=== PATIENT | male | born 1965 | race Caucasian/White ===

== ENCOUNTER 2017-02-18 21:23 | Emergency (ER) | payer MEDICAID ==
[~2017-02-18] VITALS: Ht 5619.3 cm; Wt 74.9 kg
[~2017-02-18 21:23] MED LIST: CHLO25CA10 PO
[2017-02-18 22:28] LABS: BASOPHILS % (AUTO) 0.5 % (0-1); EOSINOPHILS % (AUTO) 0.2 % (0-6); HEMOGLOBIN 13.8 g/dl (14.0-17.9); LYMPHOCYTES # (AUTO) 1.3 X10'3 (1.1-4.8); MEAN CORPUSCULAR HEMOGLOBIN 31.4 PG (27.0-31.0); MEAN CORPUSCULAR HGB CONC 34.5 % (33.0-36.5); MEAN CORPUSCULAR VOLUME 91.1 FL (78-98); MEAN PLATELET VOLUME 7.7 FL (7.4-10.4); MONOCYTES # (AUTO) 0.9 X10'3 (0-0.9); MONOCYTES % (AUTO) 10.6 % (2-12); NEUTROPHILS # (AUTO) 6.3 X10'3 (1.8-7.7); NEUTROPHILS % (AUTO) 73.7 % (42-75); PLATELET COUNT 310 X10'3 (140-440); RED BLOOD COUNT 4.39 X10'6 (4.70-6.10); RED CELL DISTRIBUTION WIDTH 13.4 % (11.5-14.5); WHITE BLOOD COUNT 8.6 X10'3 (4.5-11.0)
[2017-02-18] MEDS ORDERED: thiamine 100mg tablet PO ONE (22:30)
[2017-02-18] MEDS ORDERED: phenobarbital inj 130 MG in normal saline 100ml IV soln 99 ML IV PRN (22:30)
[2017-02-18] MEDS ORDERED: magnesium oxide 400mg tablet PO ONE (22:30)
[2017-02-18] MEDS ORDERED: normal saline 1000ML IV soln IVB ONE (22:30)
[2017-02-18] MEDS ORDERED: ondansetron/PF 4mg/2ml inj IV ONE (22:30)
[2017-02-18 22:44] LABS: ALANINE AMINOTRANSFERASE 49 U/L (12-78); ALBUMIN 3.5 G/DL (3.4-5.0); ALBUMIN/GLOBULIN RATIO 0.9 (1.1-1.5); ALKALINE PHOSPHATASE 129 IU/L (46-116); ANION GAP 8 (8-16); ASPARTATE AMINO TRANSFERASE 41 U/L (10-37); BILIRUBIN,TOTAL 0.3 MG/DL (0.1-1.0); BLOOD UREA NITROGEN 14 MG/DL (7-18); BUN/CREATININE RATIO 11.3 (5.4-32.0); CALCIUM 8.9 MG/DL (8.5-10.1); CHLORIDE 103 MMOL/L (99-107); CREATININE 1.24 MG/DL (0.60-1.10); GLUCOSE 104 MG/DL (70-104); SODIUM 139 MMOL/L (135-145); TOTAL CARBON DIOXIDE 28.3 MMOL/L (24-32); TOTAL PROTEIN 7.3 G/DL (6.4-8.2); eGFR 62 ML/MIN
[2017-02-18 22:47] LABS: CLARITY,URINE Clear (Clear); COLOR,URINE Yellow (Yellow); GLUCOSE, URINE Negative (Neg); KETONES,URINE Negative (Neg); LEUKOCYTE ESTERASE ,URINE Negative (Neg); NITRITES, URINE Negative (Neg); OCCULT BLOOD,URINE Negative (Neg); PROTEIN,URINE Trace mg/dl (Neg)
[2017-02-18 22:49] LABS: URINE AMPHETAMINE SCREEN NEGATIVE (Neg); URINE BARBITUATE SCREEN NEGATIVE (Neg); URINE BENZODIAZEPINES SCREEN POSITIVE (Neg); URINE CANNABINOID SCREEN POSITIVE (Neg); URINE COCAINE SCREEN NEGATIVE (Neg); URINE METHADONE SCREEN NEGATIVE (Neg); URINE OPIATE SCREEN NEGATIVE (Neg); URINE PHENCYCLIDINE SCREEN NEGATIVE (Neg)
[2017-02-18 22:56] LABS: ETHANOL < 0.010 GM/DL (0.0-0.010); MAGNESIUM 1.8 MG/DL (1.5-2.4)
[2017-02-18 23:02] LABS: UA COLLECTION TYPE CLN CATCH MIDSTREAM
[2017-02-18 23:05] LABS: BACTERIA,URINE NONE SEEN /HPF (Neg); RBC,URINE NONE SEEN /HPF (0-2); SQUAMOUS EPITHELIAL CELL,UR NONE SEEN /LPF (FEW); WBC,URINE NONE SEEN /HPF (0-4)
[2017-02-18 23:46] LABS: TOTAL CELLS COUNTED 100
[2017-02-18 23:47] LABS: PLATELET ESTIMATE NORMAL
[2017-02-19] MEDS ORDERED: risperiDONE 0.5mg tablet PO ONE (07:50)
[2017-02-19] MEDS ORDERED: folic acid 1mg tablet PO ONE (08:00)
[2017-02-19] MEDS ORDERED: chlordiazePOXIDE 25mg capsule PO ONE (08:00)
[2017-02-19] MEDS: thiamine 100mg tablet PO SCH (08:13)
[2017-02-19] MEDS: folic acid 1mg tablet PO SCH (08:14)
[2017-02-19] MEDS: LORazepam 1 MG tablet PO PRN ×2 (13:09→19:30)
[2017-02-19] MEDS: risperiDONE 0.5mg tablet PO SCH (21:07)
[2017-02-20] MEDS: diphenhydrAMINE 25mg capsule PO PRN ×3 (01:51→13:37)
[2017-02-20] MEDS: LORazepam 1 MG tablet PO PRN ×4 (01:51→22:58)
[2017-02-20] MEDS: haloperidol 5mg tablet PO PRN ×3 (01:51→13:37)
[2017-02-20] MEDS: thiamine 100mg tablet PO SCH (08:13)
[2017-02-20] MEDS: folic acid 1mg tablet PO SCH (08:13)
[2017-02-20] MEDS ORDERED: ibuprofen tablet 400 MG TABLET PO ONE (13:25)
[2017-02-20] MEDS: nicotine 21mg patch - 24 hr TD SCH (13:38)
[2017-02-20 20:42] LABS: BASOPHILS % (AUTO) 0.5 % (0-1); EOSINOPHILS # (AUTO) 0.1 X10'3 (0-0.9); EOSINOPHILS % (AUTO) 2.9 % (0-6); HEMOGLOBIN 14.3 g/dl (14.0-17.9); LYMPHOCYTES % (AUTO) 26.6 % (21-51); MEAN CORPUSCULAR HEMOGLOBIN 31.4 PG (27.0-31.0); MEAN CORPUSCULAR HGB CONC 34.1 % (33.0-36.5); MEAN CORPUSCULAR VOLUME 92.2 FL (78-98); MEAN PLATELET VOLUME 7.8 FL (7.4-10.4); MONOCYTES # (AUTO) 0.7 X10'3 (0-0.9); MONOCYTES % (AUTO) 17.5 % (2-12); NEUTROPHILS % (AUTO) 52.5 % (42-75); PLATELET COUNT 242 X10'3 (140-440); RED BLOOD COUNT 4.55 X10'6 (4.70-6.10); WHITE BLOOD COUNT 3.8 X10'3 (4.5-11.0)
[2017-02-20 20:55] LABS: ALANINE AMINOTRANSFERASE 34 U/L (12-78); ALBUMIN 3.1 G/DL (3.4-5.0); ALBUMIN/GLOBULIN RATIO 0.8 (1.1-1.5); ALKALINE PHOSPHATASE 139 IU/L (46-116); ANION GAP 7 (8-16); ASPARTATE AMINO TRANSFERASE 23 U/L (10-37); BILIRUBIN,TOTAL 0.2 MG/DL (0.1-1.0); BLOOD UREA NITROGEN 17 MG/DL (7-18); BUN/CREATININE RATIO 21.3 (5.4-32.0); CALCIUM 9.1 MG/DL (8.5-10.1); CHLORIDE 102 MMOL/L (99-107); GLUCOSE 108 MG/DL (70-104); POTASSIUM 3.7 MMOL/L (3.5-5.1); SODIUM 140 MMOL/L (135-145); TOTAL PROTEIN 6.8 G/DL (6.4-8.2); eGFR > 90 ML/MIN
[2017-02-20] MEDS: risperiDONE 0.5mg tablet PO SCH (21:00)
[2017-02-20 23:38] LABS: PLATELET ESTIMATE NORMAL; TOTAL CELLS COUNTED 100
[2017-02-21] MEDS: diphenhydrAMINE 25mg capsule PO PRN ×4 (02:11→21:02)
[2017-02-21] MEDS: LORazepam 1 MG tablet PO PRN ×4 (02:11→21:02)
[2017-02-21] MEDS: haloperidol 5mg tablet PO PRN ×4 (02:12→21:01)
[2017-02-21] MEDS: nicotine 21mg patch - 24 hr TD SCH ×2 (08:00→15:00)
[2017-02-21] MEDS: thiamine 100mg tablet PO SCH (08:13)
[2017-02-21] MEDS: folic acid 1mg tablet PO SCH (08:14)
[2017-02-21] MEDS: ibuprofen 200mg tablet PO ONE ×2 (11:44→12:10)
[2017-02-21] MEDS ORDERED: bacitracin 15gm ointment TP ONE ×2 (12:00)
[2017-02-21] MEDS: risperiDONE 0.5mg tablet PO SCH (20:51)
[2017-02-21] MEDS ORDERED: ibuprofen tablet 400 MG TABLET PO ONE (21:50)
[2017-02-21] MEDS ORDERED: ibuprofen 200mg tablet PO ONE (21:55)
[2017-02-22] MEDS: LORazepam 1 MG tablet PO PRN ×3 (06:17→19:47)
[2017-02-22] MEDS: diphenhydrAMINE 25mg capsule PO PRN ×3 (06:18→19:47)
[2017-02-22] MEDS: haloperidol 5mg tablet PO PRN ×3 (06:18→19:48)
[2017-02-22] MEDS: thiamine 100mg tablet PO SCH (08:08)
[2017-02-22] MEDS: folic acid 1mg tablet PO SCH (08:08)
[2017-02-22] MEDS: nicotine 21mg patch - 24 hr TD SCH (08:10)
[2017-02-22] MEDS: ibuprofen 200mg tablet PO PRN (19:49)
[2017-02-22] MEDS: risperiDONE 0.5mg tablet PO SCH (19:52)
[2017-02-23] MEDS: LORazepam 1 MG tablet PO PRN ×4 (02:15→20:33)
[2017-02-23] MEDS: diphenhydrAMINE 25mg capsule PO PRN ×4 (02:15→20:32)
[2017-02-23] MEDS: haloperidol 5mg tablet PO PRN ×4 (02:16→20:33)
[2017-02-23] MEDS: thiamine 100mg tablet PO SCH (08:19)
[2017-02-23] MEDS: folic acid 1mg tablet PO SCH (08:19)
[2017-02-23] MEDS: nicotine 21mg patch - 24 hr TD SCH (08:20)
[2017-02-23] MEDS: ibuprofen 200mg tablet PO PRN ×2 (08:25→14:31)
[2017-02-23] MEDS: risperiDONE 0.5mg tablet PO SCH (20:32)
[2017-02-24] MEDS: haloperidol 5mg tablet PO PRN ×3 (02:48→16:23)
[2017-02-24] MEDS: diphenhydrAMINE 25mg capsule PO PRN ×3 (02:48→16:23)
[2017-02-24] MEDS: LORazepam 1 MG tablet PO PRN ×3 (02:49→16:23)
[2017-02-24] MEDS: ibuprofen 200mg tablet PO PRN ×2 (02:49→16:30)
[2017-02-24] MEDS: thiamine 100mg tablet PO SCH (08:06)
[2017-02-24] MEDS: nicotine 21mg patch - 24 hr TD SCH (08:06)
[2017-02-24] MEDS: folic acid 1mg tablet PO SCH (08:06)
[2017-02-24] MEDS: risperiDONE 0.5mg tablet PO SCH (20:49)
[2017-02-25] MEDS: ibuprofen 200mg tablet PO PRN (00:46)
[2017-02-25] MEDS: LORazepam 1 MG tablet PO PRN (00:46)
[2017-02-25] MEDS: diphenhydrAMINE 25mg capsule PO PRN ×3 (00:48→21:14)
[2017-02-25] MEDS: haloperidol 5mg tablet PO PRN ×2 (00:49→07:49)
[2017-02-25] MEDS: folic acid 1mg tablet PO SCH (07:43)
[2017-02-25] MEDS: thiamine 100mg tablet PO SCH (07:43)
[2017-02-25] MEDS: nicotine 21mg patch - 24 hr TD SCH (07:44)
[2017-02-25] MEDS: hydrOXYzine 25 MG tablet PO PRN ×2 (07:50→20:27)
[2017-02-25] MEDS: neomy sulf/bacitrac zn/polymixin b oint 14.2 gm tube TP SCH ×3 (13:00→20:28)
[2017-02-25] MEDS: risperiDONE 0.5mg tablet PO SCH (20:25)
[2017-02-26] MEDS: nicotine 21mg patch - 24 hr TD SCH (08:38)
[2017-02-26] MEDS: thiamine 100mg tablet PO SCH (08:38)
[2017-02-26] MEDS: neomy sulf/bacitrac zn/polymixin b oint 14.2 gm tube TP SCH ×3 (08:38→21:00)
[2017-02-26] MEDS: folic acid 1mg tablet PO SCH (08:38)
[2017-02-26] MEDS: hydrOXYzine 25 MG tablet PO PRN (08:44)
[2017-02-26] MEDS: diphenhydrAMINE 25mg capsule PO PRN (08:44)
[2017-02-26] MEDS: ibuprofen 200mg tablet PO PRN ×2 (11:04→20:46)
[2017-02-26] MEDS: risperiDONE 0.5mg tablet PO SCH (21:00)
[2017-02-27] MEDS: diphenhydrAMINE 25mg capsule PO PRN (03:38)
[2017-02-27] MEDS: ibuprofen 200mg tablet PO PRN (03:38)
[2017-02-27 05:17] VITALS: BP 124/73
== END 2017-02-27 09:08 | disposition home or self-care (01) ==
LOC: ER 21:23
DX: F33.9 Major depressive disorder, recurrent, unspecified (principal); F10.239 Alcohol dependence with withdrawal, unspecified; I10 Essential (primary) hypertension; F12.10 Cannabis abuse, uncomplicated; F13.10 Sedative, hypnotic or anxiolytic abuse, uncomplicated; R45.851 Suicidal ideations
CPT/HCPCS: 36415; 71010; 80053; 80305; 80320; 81001; 83735; 84443; 85025; 93005; 96365; 99285; J2405; J2560; J7030; Q0163; Q0177; 96375

== ENCOUNTER 2017-07-11 19:05 | Emergency (ER) | payer MEDICAID ==
[~2017-07-11] VITALS: Ht 175.3 cm; Wt 65.4 kg
[2017-07-11] MEDS ORDERED: GABA600T2 PO (22:06)
[2017-07-11 22:51] LABS: BASOPHILS % (AUTO) 0.5 % (0-1); EOSINOPHILS # (AUTO) 0.2 X10'3 (0-0.9); EOSINOPHILS % (AUTO) 2.8 % (0-6); HEMATOCRIT 42.6 % (42.0-52.0); LYMPHOCYTES # (AUTO) 2.1 X10'3 (1.1-4.8); LYMPHOCYTES % (AUTO) 28.3 % (21-51); MEAN CORPUSCULAR HEMOGLOBIN 31.1 PG (27.0-31.0); MEAN CORPUSCULAR HGB CONC 35.2 % (33.0-36.5); MEAN CORPUSCULAR VOLUME 88.5 FL (78-98); MEAN PLATELET VOLUME 8.3 FL (7.4-10.4); MONOCYTES # (AUTO) 0.9 X10'3 (0-0.9); NEUTROPHILS # (AUTO) 4.1 X10'3 (1.8-7.7); NEUTROPHILS % (AUTO) 56.4 % (42-75); PLATELET COUNT 237 X10'3 (140-440); RED BLOOD COUNT 4.81 X10'6 (4.70-6.10); RED CELL DISTRIBUTION WIDTH 12.6 % (11.5-14.5); WHITE BLOOD COUNT 7.3 X10'3 (4.5-11.0)
[2017-07-11 22:58] LABS: PARTIAL THROMBOPLASTIN TIME 25 SECONDS (22-32); PROTHROMBIN TIME 10.1 SECONDS (9.0-12.0)
[2017-07-11] MEDS ORDERED: cyclobenzaprine 10mg tablet PO ONE (23:05)
[2017-07-11] MEDS ORDERED: chlordiazePOXIDE 25mg capsule PO ONE (23:05)
[2017-07-11 23:11] LABS: ALANINE AMINOTRANSFERASE 42 U/L (12-78); ALBUMIN 4.1 G/DL (3.4-5.0); ALBUMIN/GLOBULIN RATIO 1.3 (1.1-1.5); ALKALINE PHOSPHATASE 85 IU/L (46-116); ANION GAP 13 (8-16); ASPARTATE AMINO TRANSFERASE 39 U/L (10-37); BILIRUBIN,TOTAL 0.4 MG/DL (0.1-1.0); BLOOD UREA NITROGEN 13 MG/DL (7-18); BUN/CREATININE RATIO 16.5 (5.4-32.0); CALCIUM 8.8 MG/DL (8.5-10.1); CHLORIDE 104 MMOL/L (99-107); CREATININE 0.79 MG/DL (0.60-1.10); GLUCOSE 100 MG/DL (70-104); MAGNESIUM 2.1 MG/DL (1.5-2.4); POTASSIUM 4.3 MMOL/L (3.5-5.1); SODIUM 141 MMOL/L (135-145); TOTAL CARBON DIOXIDE 23.9 MMOL/L (24-32); TOTAL PROTEIN 7.2 G/DL (6.4-8.2); eGFR > 90 ML/MIN
[2017-07-11 23:56] VITALS: BP 137/60
[2017-07-12] MEDS ORDERED: gabapentin 300mg capsule PO SCH
== END 2017-07-11 23:59 | disposition home or self-care (01) ==
LOC: ER 19:05
DX: M62.81 Muscle weakness (generalized) (principal); R79.1 Abnormal coagulation profile; Z56.0 Unemployment, unspecified; Z79.899 Other long term (current) drug therapy
CPT/HCPCS: 36415; 80053; 83735; 84100; 84443; 85025; 85610; 85730; 93005; 99285

== ENCOUNTER 2021-10-09 12:17 | Emergency (ER) | payer MEDICAID ==
[~2021-10-09] VITALS: Ht 175.3 cm; Wt 70.5 kg
[~2021-10-09 12:17] MED LIST changes: +GABA600T13 PO
[2021-10-09 13:14] LABS: BASOPHILS % (AUTO) 0.5 % (0-1); EOSINOPHILS % (AUTO) 0.6 % (0-6); HEMATOCRIT 43.8 % (42.0-52.0); HEMOGLOBIN 15.1 g/dl (14.0-17.9); LYMPHOCYTES # (AUTO) 1.6 X10'3 (1.1-4.8); LYMPHOCYTES % (AUTO) 21.3 % (21-51); MEAN CORPUSCULAR HEMOGLOBIN 31.4 PG (27.0-31.0); MEAN CORPUSCULAR HGB CONC 34.6 g/dL (33.0-36.5); MEAN CORPUSCULAR VOLUME 90.9 FL (78-98); MEAN PLATELET VOLUME 7.7 FL (7.4-10.4); MONOCYTES # (AUTO) 1.1 X10'3 (0-0.9); MONOCYTES % (AUTO) 14.6 % (2-12); NEUTROPHILS # (AUTO) 4.6 X10'3 (1.8-7.7); PLATELET COUNT 298 X10'3 (140-440); RED BLOOD COUNT 4.82 X10'6 (4.70-6.10); RED CELL DISTRIBUTION WIDTH 14.7 % (11.5-14.5); WHITE BLOOD COUNT 7.3 X10'3 (4.5-11.0)
[2021-10-09] MEDS ORDERED: ARIP20TA4 PO (13:22)
[2021-10-09] MEDS ORDERED: BACL20TA11 (13:25)
[2021-10-09] MEDS ORDERED: CYCL-1 PO (13:25)
[2021-10-09] MEDS ORDERED: LORA2TAB96 PO (13:26)
[2021-10-09] MEDS ORDERED: PALI234D IM (13:28)
[2021-10-09 13:31] LABS: ALANINE AMINOTRANSFERASE 36 U/L (12-78); ALBUMIN 4.3 G/DL (3.4-5.0); ALBUMIN/GLOBULIN RATIO 1.1 (1.1-1.5); ALKALINE PHOSPHATASE 168 IU/L (46-116); ANION GAP 14 (8-16); ASPARTATE AMINO TRANSFERASE 41 U/L (10-37); BILIRUBIN,TOTAL 0.7 MG/DL (0.1-1.0); BLOOD UREA NITROGEN 10 MG/DL (7-18); BUN/CREATININE RATIO 11.5 (5.4-32.0); CALCIUM 8.9 MG/DL (8.5-10.1); CHLORIDE 103 MMOL/L (99-107); CREATININE 0.87 MG/DL (0.60-1.10); GLUCOSE 90 MG/DL (70-104); POTASSIUM 3.3 MMOL/L (3.5-5.1); SODIUM 140 MMOL/L (135-145); TOTAL CARBON DIOXIDE 23.2 MMOL/L (24-32); TOTAL PROTEIN 8.2 G/DL (6.4-8.2); eGFR > 90 ML/MIN
[2021-10-09 13:38] LABS: ETHANOL 0.143 GM/DL (0.0-0.010)
[2021-10-09] MEDS ORDERED: potassium Cl 20 mEq SR tablet PO STA (13:53)
[2021-10-09] MEDS ORDERED: folic acid 1mg/0.2ml inj IV ONE (13:55)
[2021-10-09] MEDS ORDERED: ondansetron/PF 4mg/2ml inj IV ONE (13:55)
[2021-10-09] MEDS ORDERED: thiamine 100mg/ml 2ml inj. IV ONE (13:55)
[2021-10-09] MEDS ORDERED: famotidine/PF 10 mg/ml inj IV ONE (13:55)
[2021-10-09] MEDS ORDERED: normal saline 1000ML IV soln IVB ONE (13:55)
[2021-10-09] MEDS ORDERED: LORazepam 2 mg/ml vial IV ONE (13:55)
--- NOTE | 2021-10-09 15:00 | NUR ---
pt became slightly aggressive towards staff when he was told he was going to get 1mg of ativan. pt demanded 2 mg "saying 1 mg is not going to do fucking anything. if you are going to fuck around i am just going to leave". staff came to stand by. pt calmed down.
--- NOTE | 2021-10-09 15:30 | NUR ---
pt is sound asleep. will admin oral k+ when the pt wakes up as he was becoming very aggressive towards staff.
--- NOTE | 2021-10-09 17:00 | NUR ---
pt is sleeping
[2021-10-09] MEDS ORDERED: chlordiazePOXIDE 25mg capsule PO ONE (18:43)
[2021-10-09] MEDS: cyclobenzaprine 10mg tablet PO PRN (19:03)
[2021-10-09] MEDS: ARIPIPRAZOLE 10 MG TABLET PO SCH (19:04)
[2021-10-09 19:15] LABS: CLARITY,URINE CLEAR (Clear); COLOR,URINE YELLOW (Yellow); GLUCOSE, URINE NEGATIVE (Neg); KETONES,URINE TRACE mg/dl (Neg); LEUKOCYTE ESTERASE ,URINE NEGATIVE (Neg); NITRITES, URINE NEGATIVE (Neg); OCCULT BLOOD,URINE NEGATIVE (Neg); PROTEIN,URINE NEGATIVE (Neg); UROBILINOGEN,URINE 0.2 E.U/dL (0.2-1.0)
[2021-10-09 19:18] LABS: URINE AMPHETAMINE SCREEN NEGATIVE (Neg); URINE BARBITUATE SCREEN NEGATIVE (Neg); URINE BENZODIAZEPINES SCREEN POSITIVE (Neg); URINE CANNABINOID SCREEN POSITIVE (Neg); URINE COCAINE SCREEN NEGATIVE (Neg); URINE METHADONE SCREEN NEGATIVE (Neg); URINE OPIATE SCREEN NEGATIVE (Neg); URINE PHENCYCLIDINE SCREEN NEGATIVE (Neg)
[2021-10-09 19:26] LABS: UA COLLECTION TYPE VOIDED
--- NOTE | 2021-10-09 19:48 | NUR ---
The patient is tremulous and BP 152/127 and HR 100. 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 He was very irritable. He stated that he is feeling suicidal and stated he wished the Fentanyl that he had taken had worked to end his life. Medications given as ordered and he is currently resting on his bed.
--- NOTE | 2021-10-09 22:00 | NUR ---
The patient appears to be sleeping
--- NOTE | 2021-10-09 23:59 | NUR ---
The patient appears to be sleeping
[2021-10-10] MEDS ORDERED: cyclobenzaprine 10mg tablet PO SCH
--- NOTE | 2021-10-10 01:13 | NUR ---
The patient appears to be sleeping
--- NOTE | 2021-10-10 02:21 | NUR ---
The patient was awake and requested juice
--- NOTE | 2021-10-10 03:58 | NUR ---
The patient appears to be sleeping
--- NOTE | 2021-10-10 04:51 | NUR ---
The patient appears to be sleeping
--- NOTE | 2021-10-10 05:20 | NUR ---
PACKET SENT TO [facility]
--- NOTE | 2021-10-10 07:00 | NUR ---
pt is sleeping
[2021-10-10] MEDS: ARIPIPRAZOLE 10 MG TABLET PO SCH ×2 (08:55→20:11)
--- NOTE | 2021-10-10 09:00 | NUR ---
no signs of etoh withdrawal. pt is taking his meds
[2021-10-10] MEDS: cyclobenzaprine 10mg tablet PO PRN ×2 (09:01→20:13)
[2021-10-10] MEDS: LORazepam 1 MG tablet PO PRN ×2 (09:01→12:24)
[2021-10-10] MEDS: chlordiazePOXIDE 25mg capsule PO SCH ×3 (09:01→20:12)
--- NOTE | 2021-10-10 11:00 | NUR ---
pt is sleeping
--- NOTE | 2021-10-10 13:00 | NUR ---
pt is sleeping
--- NOTE | 2021-10-10 15:00 | NUR ---
pt is resting in his bed. no issues
--- NOTE | 2021-10-10 15:10 | NUR ---
PT ALERTED STAFF THAT HIS IV WAS BLEEDING. IT WAS PULLED OUT, REMOVED AND CLEANED PT UP.
--- NOTE | 2021-10-10 17:00 | NUR ---
pt is resting.
--- NOTE | 2021-10-10 18:19 | NUR ---
The patient became enraged that he was not given a double meal tray and began approaching the nursing station pumped and in a threatening manner. He was immediately told that the behavior was totally unacceptable and was directed back to his bed which he did.
--- NOTE | 2021-10-10 19:53 | NUR ---
The patient appears to be sleeping
--- NOTE | 2021-10-10 20:15 | NUR ---
The patient awakened for medications and he was polite.
--- NOTE | 2021-10-10 21:52 | NUR ---
The patient appears to be sleeping
--- NOTE | 2021-10-10 23:57 | NUR ---
The patient appears to be sleeping
--- NOTE | 2021-10-11 01:38 | NUR ---
The patient appears to be sleeping
[2021-10-11] MEDS: LORazepam 1 MG tablet PO PRN ×3 (02:13→16:08)
--- NOTE | 2021-10-11 02:14 | NUR ---
The patient up to the station and irritable and agitated. Ativan 2mg given
--- NOTE | 2021-10-11 03:00 | NUR ---
The patient appears to be sleeping
--- NOTE | 2021-10-11 04:50 | NUR ---
The patient is currently is resting on his bed but has been restless and irritable despite getting two mg of ativan
--- NOTE | 2021-10-11 08:00 | NUR ---
Pt. awake and eating breakfast at bedside. Pt. took all medications including Librium 100mg for ETOH withdrawal. Pt. requesting Ativan and informed he must wait 2 more hours. Pt. states, "They didn't make me wait last time". Pt. requesting more food. Pt. informed that if there is more
[2021-10-11] MEDS: ARIPIPRAZOLE 10 MG TABLET PO SCH ×2 (08:12→20:21)
[2021-10-11] MEDS: chlordiazePOXIDE 25mg capsule PO SCH ×3 (08:13→20:21)
--- NOTE | 2021-10-11 08:57 | NUR ---
Pt. requesting more food, RN informed pt. that if there are snacks he may have one. Pt. states, "I want another breakfast try". Pt. informed that there are no more breakfast trays. Pt. begins to swear and calls this RN "Dumber than a box of rocks". 1:1 assessment done at bedside, Pt. endorses SI with plan, states, "I'm not telling you my plan". Pt. denies HI, A/V hallucinations. Pt. A&O to self and circumstance only. Pt. states, "I was sober and living in [address] housing but I relapsed and lost my housing. The last week I've just been drinking".
--- NOTE | 2021-10-11 11:00 | NUR ---
Pt. awake and laying in bed in supine position. Pt. in no apparent distress.
--- NOTE | 2021-10-11 12:00 | NUR ---
Pt. became agitated, demanding food. Pt. given Ativan 2mg.
--- NOTE | 2021-10-11 14:15 | NUR ---
Pt. eloped and was found wandering outside of the hospital. When found, pt. states, "I just wanted to take a little walk around the block". Pt. agreed to come back into the hospital.
--- NOTE | 2021-10-11 16:00 | NUR ---
Pt. becoming agitated, states, "I want my stuff and I want to go outside and have a cigarette". When pt. informed that he is on a hold, pt. states, "Well I don't want that!" Pt. states, "I just want my backpack and an aspirin". Pt. given PRN Ativan 2mg and Flexaril 10mg po and pt. went back to his bed.
[2021-10-11] MEDS: cyclobenzaprine 10mg tablet PO PRN (16:08)
[2021-10-11] MEDS ORDERED: haloperidol 5mg tablet PO ONE (16:25)
[2021-10-11] MEDS ORDERED: diphenhydrAMINE 25mg capsule PO ONE (16:25)
--- NOTE | 2021-10-11 17:00 | NUR ---
Pt. becoming agitated again, stating, "I'm gonna get out of here and that's that, you guys are all idiots! I can't stay here anymore". RN received one time order for Haldol 10mg and Benadryl 50mg. Pt. took medication without issue.
--- NOTE | 2021-10-11 17:17 | NUR ---
Pt refused 0 vital signs "no, no, no, there's no point, I am sick of your incompetancy and idocracy", this tech insisted that it was important to have his vital signs checked and still pt refused, stating "if I I , I don't really give a shit."
--- NOTE | 2021-10-11 18:21 | NUR ---
Patient's room uncluttered and is in line of sight.
--- NOTE | 2021-10-11 19:00 | NUR ---
Patient at the nurses station demanding that he either be admitted to a facility or be released right away. Staff attempting to reason with patient, however, patient is rude to staff.
--- NOTE | 2021-10-11 19:15 | NUR ---
Patient demanding to go outside for a smoke
--- NOTE | 2021-10-11 19:45 | NUR ---
Patient is up from bed again demanding that all his medications be administered to him at this time. Patient informed that prescribed medications will be administered as at when due.
[2021-10-11] MEDS ORDERED: QUEtiapine 25mg tablet PO ONE (20:05)
--- NOTE | 2021-10-11 22:36 | NUR ---
Patient, post pm meds administration, is continually getting up from bed to wander and sometimes use the bathroom but is re-directable.
--- NOTE | 2021-10-11 23:04 | NUR ---
Patient is up again from bed and is being re-directed by staff.
--- NOTE | 2021-10-12 00:59 | NUR ---
Patient is resting quietly in bed within staff lines of sight
--- NOTE | 2021-10-12 02:57 | NUR ---
Patient, awake but resting in bed, remains in a safe environment.
--- NOTE | 2021-10-12 04:53 | NUR ---
Patient, awake, continously asking for plan of care update
--- NOTE | 2021-10-12 06:42 | NUR ---
Patient awake at start of shift. He is already demanding to leave. When told it was up to the doctors, he became beligerent, making threats and name calling. He was directed back to his room.
--- NOTE | 2021-10-12 08:00 | NUR ---
Patient wandering around the unit looking for his things. Patient has to be told over and over that his things are locked up safely.
--- NOTE | 2021-10-12 10:07 | NUR ---
Patient up to use restroom, then directed back to his room.
[2021-10-12] MEDS: chlordiazePOXIDE 25mg capsule PO SCH ×3 (10:09→19:29)
[2021-10-12] MEDS: ARIPIPRAZOLE 10 MG TABLET PO SCH ×2 (10:09→19:30)
--- NOTE | 2021-10-12 12:52 | NUR ---
Patient sitting up on his bed finishing his lunch meal.
--- NOTE | 2021-10-12 14:00 | NUR ---
Patient has not slept today. He wanders around looking for his things, but they are locked up. Patient has been re-directed many times, but his short-term memory lasts around five minutes, before he's at it again.
[2021-10-12] MEDS: LORazepam 1 MG tablet PO PRN (19:29)
[2021-10-12] MEDS ORDERED: nicotine 21mg patch - 24 hr TD ONE (19:35)
--- NOTE | 2021-10-12 19:37 | NUR ---
The patient is agitated and confused. He thinks he is here because he wanted a toothbrush. Discussed the patient with Dr. Fregoso and it is suspected that the benzodiazapines are causing some delerium. He was made aware that the patient received librium and ativan.
--- NOTE | 2021-10-12 20:23 | NUR ---
The patient is wandering around by his bed
--- NOTE | 2021-10-12 21:33 | NUR ---
The patient is resting on his bed
--- NOTE | 2021-10-12 23:42 | NUR ---
The patient appears to be sleeping
--- NOTE | 2021-10-13 01:26 | NUR ---
The patient up to use the bathroom and is now back on his bed
[2021-10-13] MEDS ORDERED: acetaminophen 325mg tablet PO ONE (02:35)
--- NOTE | 2021-10-13 02:45 | NUR ---
The patient awake to use the bathroom. He is reporting back pain and asking for tylenol or ibuprofen and Dr. Florezfs aware and tylenol ordered. The patient is now back on his bed trying to sleep
--- NOTE | 2021-10-13 03:22 | NUR ---
The patient appears to be sleeping
[2021-10-13] MEDS: chlordiazePOXIDE 25mg capsule PO SCH ×3 (07:26→21:00)
[2021-10-13] MEDS: LORazepam 1 MG tablet PO PRN ×2 (07:26→17:10)
[2021-10-13] MEDS: ARIPIPRAZOLE 10 MG TABLET PO SCH ×2 (07:26→20:00)
--- NOTE | 2021-10-13 07:31 | NUR ---
Adina kelly in [facility] - 10/13/21 at 1104 by JULIANA Berta
--- NOTE | 2021-10-13 07:31 | NUR ---
Assumed care of this patient since 0630am, he is awake, alert and oriented. Currently pacing around the unit and delusional. Am meds given, also received Ativan for anxiety. Monitoring ongoing.
--- NOTE | 2021-10-13 07:34 | NUR ---
Previous to RN giving medications, while RN was getting medications to give to pt, dariel overheard pt talking to himself from his room. Dariel heard pt say "I wish I had my shotgun". Dariel did not approach pt but asked pt to repeat himself, pt refused to repeat himself and said "I didn't think you were listening to me".
--- NOTE | 2021-10-13 08:03 | NUR ---
Breakfast served, pt is eating at this time
--- NOTE | 2021-10-13 09:30 | NUR ---
Patient appears to be asleep at this time
--- NOTE | 2021-10-13 09:56 | NUR ---
Patient is awake, approached the nursing station. Talking gibberish, redirection implemented. Monitoring ongoing
--- NOTE | 2021-10-13 10:49 | NUR ---
Pt up and about, between nursing station and his bedside. Then sat on his bed and grawled out very loudly. Other patients were safely reassured. Monitoring ongoing
--- NOTE | 2021-10-13 11:02 | NUR ---
Patient loudly snoring at bedside
--- NOTE | 2021-10-13 11:02 | NUR ---
Adina kelly in [facility] - 10/13/21 at 1103 by JULIANA Pt elton
--- NOTE | 2021-10-13 11:20 | NUR ---
Patient is awake, up and about at this time
--- NOTE | 2021-10-13 11:27 | NUR ---
[facility] clinician evaluating patient at bedside. He is cursing, swearing and using foul language. security contacted and are standby
[2021-10-13] MEDS ORDERED: diphenhydrAMINE 50 mg/ml inj IM ONE (11:35)
[2021-10-13] MEDS ORDERED: LORazepam 2 mg/ml vial IM ONE (11:35)
[2021-10-13] MEDS ORDERED: haloperidol lactate 5mg/ml inj IM ONE (11:35)
--- NOTE | 2021-10-13 11:56 | NUR ---
Assisted by security team and staff, pt received ativan/haldol/benadryl as ordered. Currently in bed. Monitoring ongoing
--- NOTE | 2021-10-13 13:24 | NUR ---
Spoke to Annalisa ferraro @ [employer] for report on patient.
--- NOTE | 2021-10-13 13:34 | NUR ---
Patient alseep and snoring loudly
--- NOTE | 2021-10-13 14:25 | NUR ---
Patient is awake and eating lunch
[2021-10-13] MEDS: cyclobenzaprine 10mg tablet PO PRN (17:10)
--- NOTE | 2021-10-13 18:10 | NUR ---
Eating dinner at this time, received prns for anxiety and pain respectively. Vitals are stable. safety maintained. Report given to pm rn for resumption of care
[2021-10-13] MEDS ORDERED: acetaminophen 325mg tablet PO PRN (18:40)
[2021-10-13] MEDS: nicotine 21mg patch - 24 hr TD SCH (18:40)
--- NOTE | 2021-10-13 19:08 | NUR ---
The patient is resting on his bed. Was polite when served his dinner.
--- NOTE | 2021-10-13 22:55 | NUR ---
The patient appears to be sleeping
--- NOTE | 2021-10-14 01:10 | NUR ---
The patient appears to be sleeping
--- NOTE | 2021-10-14 02:25 | NUR ---
The patient appears to be sleeping
--- NOTE | 2021-10-14 03:59 | NUR ---
The patient appears to be sleeping
--- NOTE | 2021-10-14 05:54 | NUR ---
The patient appeared to have slept well during the night.
--- NOTE | 2021-10-14 06:56 | NUR ---
Recieved Pt in bed sleeping w/o distress at this time.
[2021-10-14] MEDS: nicotine 21mg patch - 24 hr TD SCH (08:28)
[2021-10-14] MEDS: ARIPIPRAZOLE 10 MG TABLET PO SCH ×2 (08:28→20:18)
[2021-10-14] MEDS: chlordiazePOXIDE 25mg capsule PO SCH ×3 (08:28→20:18)
--- NOTE | 2021-10-14 09:00 | NUR ---
Pt awake and took AM meds. Pt irritated that PRN meds are not given w/o asking. able to calm and ate breakfast. Pt smiling at times and able to joke a little.
[2021-10-14] MEDS: cyclobenzaprine 10mg tablet PO PRN (10:54)
[2021-10-14] MEDS: LORazepam 1 MG tablet PO PRN ×2 (10:55→20:28)
--- NOTE | 2021-10-14 11:05 | NUR ---
got phone from Pt's belongings at his request to get phone # of friend to let him know where he is. Pt got # and made call to friend w/o issue. Pt appreciative. Pt lying down and resting at this time.
--- NOTE | 2021-10-14 13:30 | NUR ---
Pt ate lunch and took afternoon med. Pt watched some TV and was appreciative. Pt sleeping at this time.
--- NOTE | 2021-10-14 13:58 | NUR ---
REPRESENTIVE FROM [facility] CAME IN TO SEE PT. DISCUSSED VISIT WITH [facility] RN, WHO FELT THAT A VIST WOULD NOT BE BENIFICIAL TO THE PT, PT WAS ALSO ASLEEP. [facility] REP WAS INFORMED AND STATES THAT HE WOULD REPORT BACK TO HIS BEAD STRINGER.
--- NOTE | 2021-10-14 15:30 | NUR ---
Pt in bed resting and sleeping intermitently.
--- NOTE | 2021-10-14 18:08 | NUR ---
Pt up to bathroom after eating dinner. He returned to bed and is watching TV.
--- NOTE | 2021-10-14 18:47 | NUR ---
Pt up to bathroom and is pleasant with nurse and tech. Tech is taking patient vital signs after patient refused vitals earlier. Pt is agreeable to vital signs being at this time.
--- NOTE | 2021-10-14 20:10 | NUR ---
Pt moved from overflow to ED 8
--- NOTE | 2021-10-14 21:28 | NUR ---
PT RESTING COMFORTABLY IN BED PT IS IN NO APPARENT DISTRESS AND HAS BEEN PLEASANT WITH STAFF
--- NOTE | 2021-10-14 23:59 | NUR ---
Pt appears to be asleep on right side and is in no apparent distress
--- NOTE | 2021-10-15 02:30 | NUR ---
Pt is sleeping on right side. Equal rise and fall of chest noted
--- NOTE | 2021-10-15 03:53 | NUR ---
Pt ambulated to bathroom. Pt then ate a salad in his room. Pt is now resting comfortably in bed and was very pleasant with staff
--- NOTE | 2021-10-15 04:46 | NUR ---
RN brought patient yogurt and apple sauce. Pt is watching tv in room and was very pleasant with RN
--- NOTE | 2021-10-15 05:44 | NUR ---
Pt resting in bed with eyes closed. Equal rise and fall of chest noted
--- NOTE | 2021-10-15 06:06 | NUR ---
Pt refused vitals. Pt was respectful and kind to RN
--- NOTE | 2021-10-15 08:00 | NUR ---
Patient eating from provided breakfast tray
[2021-10-15] MEDS: cyclobenzaprine 10mg tablet PO PRN ×2 (08:48→20:58)
[2021-10-15] MEDS: LORazepam 1 MG tablet PO PRN ×3 (08:50→20:58)
[2021-10-15] MEDS: ARIPIPRAZOLE 10 MG TABLET PO SCH ×2 (08:50→20:52)
[2021-10-15] MEDS: chlordiazePOXIDE 25mg capsule PO SCH ×3 (08:51→20:53)
[2021-10-15] MEDS: nicotine 21mg patch - 24 hr TD SCH (08:53)
--- NOTE | 2021-10-15 12:00 | NUR ---
Patient eating from provided lunch tray, patient calm and cooperative with care.
--- NOTE | 2021-10-15 13:00 | NUR ---
Patient resting on stretcher, no signs of distress noted. Will continue to monitor.
[2021-10-15 20:18] VITALS: BP 105/78
--- NOTE | 2021-10-15 20:19 | NUR ---
First encounter with pt that was moved from room 8 to 13 here for HI/SI since 10/09/ Pt is cooperative with no needs at this time. Pts room made a safe room
--- NOTE | 2021-10-16 07:00 | NUR ---
Assumed patient care at this time
[2021-10-16] MEDS ORDERED: chlordiazePOXIDE 25mg capsule PO SCH (08:00)
--- NOTE | 2021-10-16 08:00 | NUR ---
Patient is resting on bed, reading book.
--- NOTE | 2021-10-16 08:30 | NUR ---
Patient is pleasent and cooperative. Patient ate breakfast asking for second meal tray before taking medications.
--- NOTE | 2021-10-16 09:00 | NUR ---
Patient is calmmed and cooperative.
[2021-10-16] MEDS: LORazepam 1 MG tablet PO PRN (09:25)
[2021-10-16] MEDS: nicotine 21mg patch - 24 hr TD SCH (09:25)
[2021-10-16] MEDS: ARIPIPRAZOLE 10 MG TABLET PO SCH (09:26)
--- NOTE | 2021-10-16 10:16 | NUR ---
Patient was scorted out by security patient was discharged by mental health professional Juan Manuel.
== END 2021-10-16 10:21 | disposition home or self-care (01) ==
LOC: ER 12:17
DX: F10.129 Alcohol abuse with intoxication, unspecified (principal); Z20.822 Contact with and (suspected) exposure to COVID-19; E87.6 Hypokalemia; R45.81 Low self-esteem; R45.850 Homicidal ideations; F17.200 Nicotine dependence, unspecified, uncomplicated; Z56.0 Unemployment, unspecified; Y90.9 Presence of alcohol in blood, level not specified
CPT/HCPCS: 36415; 80053; 80305; 80320; 81003; 84443; 85025; 87811; 96374; 96375; 99285; J2060; J2405; J3411; J3490; J7030